=== PATIENT | female | born 1990 | race Caucasian/White ===

== ENCOUNTER 2024-10-07 10:25 | Outpatient (CLI) | payer MEDICAID | END 2024-10-07 23:59 | disposition home or self-care (01) | LOC: MRI02 10:25 | PROVIDERS: ATTEND Physician Assistant Surgical | DX: S83.8X1A Sprain of other specified parts of right knee, initial encounter (principal); M25.361 Other instability, right knee; M25.561 Pain in right knee; X58.XXXA Exposure to other specified factors, initial encounter; Y93.89 Activity, other specified; Y92.89 Other specified places as the place of occurrence of the external cause; Y99.8 Other external cause status | CPT/HCPCS: 73721 ==